=== PATIENT | female | born 1950 | race Caucasian/White ===

== ENCOUNTER 2021-08-03 14:35 | Outpatient (CLI) | payer MEDICARE, SELFPAY ==
[2021-08-03 15:44] LABS: EXAGEN MAILED SPECIMEN
[2021-08-03 17:54] LABS: Absolute Lymphocyte Count 1.21 X10^3/uL (0.83-4.51); Absolute Neutrophil Count 5.4 X10^3/uL (2.0-7.7); Basophil# 0.04 X10^3/uL; Basophil% 0.5 % (0-1); Color, Urine Yellow (Yellow); Eosinophil# 0.17 X10^3/uL; Eosinophils% 2.3 % (0-5); Glucose, Dipstick Normal (Normal); Hematocrit 38.3 % (37-47); Hemoglobin 12.5 g/dL (12.0-15.0); Ketone-Dipstick Negative (Negative); Leukocyte Esterase-Dipstick Negative /ul (Negative); Lymphocyte # 1.21 X10^3/ul (0.83-4.51); Lymphocyte % 16.3 % (19-41); Mean Corp Hgb Conc 32.6 g/dL (32-36); Mean Corpuscular Hgb 29.7 pg (27.0-32.0); Mean Platelet Vol. 10.4 fl (6.2-12.0); Monocyte# 0.62 X10^3/uL; Monocyte% 8.3 % (0-10); NRBC Flagged by Analyzer 0 % (0-5); Neutrophil # 5.38 X10^3/uL (2.7-7.7); Neutrophil % 72.3 % (47-70); Nitrite-Dipstick Negative (Negative); Occult Blood-Urine Negative /ul (Negative); Platelet Count 274 K/mm3 (150-450); Protein-Dipstick Negative (Negative); RBC Distribution Width CV 13.5 % (11.6-14.6); RBC Distribution Width SD 44.8 fl (35.1-43.9); Red Blood Count 4.21 M/mm3 (4.2-5.4); Urine Bilirubin Dipstick Negative (Negative); Urine Clarity Clear (Clear); Urine Urobilinogen Normal (Normal); White Blood Count 7.4 K/mm3 (4.4-11.0)
[2021-08-03 18:10] LABS: ALB/GLOB Ratio 0.8 RATIO (0.9-2.4); AST(SGOT) 36 U/L (15-37); Alanine Aminotransfer ALT/SGPT 46 U/L (13-56); Albumin, Serum 3.6 g/dL (3.2-5.0); Alkaline Phosphatase 118 U/L (45-117); Anion Gap 4 (5-15); BUN 15 mg/dL (7-18); BUN/Creat Ratio 18.6 RATIO (10-20); Calcium,Total 9.1 mg/dL (8.5-10.1); Chloride 104 mmol/L (98-107); Creatinine, Serum 0.81 mg/dL (0.55-1.02); EST Glomerular Filtration Rate 74 mL/min (>60); Est Glom Filt Rate - Afr Amer 90 mL/min (>60); Globulin 4.5 g/dL (2.2-4.2); Glucose 93 mg/dL (74-106); Potassium 4.2 mmol/L (3.5-5.1); Protein, Total 8.1 g/dL (6.4-8.2); Sodium Level 136 mmol/L (136-145)
[2021-08-03 18:16] LABS: Protein, Urine (Random) 10.8 mg/dL (<11.9); Protein:Creat Ratio 347 mg/g CRE (0-200)
[2021-08-03 18:40] LABS: International Normalized Ratio 1.2; Prothrombin Time (Protime)PT. 14.2 SECONDS (11.7-14.9)
[2021-08-04 09:24] LABS: Hepatitis B Surface Antibody Non-Reactive; Hepatitis B Surface Antigen Non-Reactive (Nonreactive); Hepatitis C Antibody Non-Reactive (Nonreactive)
[2021-08-05 12:41] LABS: Thrombin Time 17.4 sec (0.0-23.0)
[2021-08-05 13:08] LABS: Dilute Prothrombin Time (dPT) 34.6 sec (0.0-47.6); Hexagonal Phase Phospholipid 1 sec (0-11); PTT-LA 41.8 sec (0.0-51.9); Thrombin Time 17.2 sec (0.0-23.0); dPT Confirm Ratio 0.94 Ratio (0.00-1.34)
[2021-08-05 16:07] LABS: Interpretation Comment: (.)
== END 2021-08-03 23:59 | disposition home or self-care (01) ==
LOC: MTLAB 14:41
PROVIDERS: PCP Nurse Practitioner Family; Referring Provider Internal Medicine Rheumatology; Visit Provider Internal Medicine Rheumatology
DX: M06.4 Inflammatory polyarthropathy (principal); R76.8 Other specified abnormal immunological findings in serum; M79.7 Fibromyalgia; M19.041 Primary osteoarthritis, right hand; M47.897 Other spondylosis, lumbosacral region; M47.892 Other spondylosis, cervical region; H35.30 Unspecified macular degeneration; G25.81 Restless legs syndrome; F32.A Depression, unspecified; I35.0 Nonrheumatic aortic (valve) stenosis; Z85.42 Personal history of malignant neoplasm of other parts of uterus; I89.0 Lymphedema, not elsewhere classified
CPT/HCPCS: 36415; 80053; 81002; 82570; 84156; 85025; 85598; 85610; 85670; 85730; 86706; 86803; 87340

== ENCOUNTER → 2022-03-31 | Outpatient (CLI) | payer MEDICARE, SELFPAY ==
[2022-04-03 12:07] LABS: Red Blood Cell Count Test/G6PD 3.83 x10E6/uL (3.77-5.28)
[2022-04-03 17:47] LABS: G6PD Quant Test 290 (127-427)
== END | disposition home or self-care (01) ==
LOC: MTLAB 11:57
PROVIDERS: PCP Nurse Practitioner Family; Referring Provider Internal Medicine Rheumatology; Visit Provider Internal Medicine Rheumatology
DX: M06.4 Inflammatory polyarthropathy (principal); R76.8 Other specified abnormal immunological findings in serum; M79.7 Fibromyalgia; M19.041 Primary osteoarthritis, right hand; M47.897 Other spondylosis, lumbosacral region; M47.892 Other spondylosis, cervical region; H35.30 Unspecified macular degeneration; G25.81 Restless legs syndrome; F32.A Depression, unspecified; I35.0 Nonrheumatic aortic (valve) stenosis; I89.0 Lymphedema, not elsewhere classified; Z85.42 Personal history of malignant neoplasm of other parts of uterus; Z79.899 Other long term (current) drug therapy
CPT/HCPCS: 36415; 82955

== ENCOUNTER → 2024-11-14 | Outpatient (CLI) | payer MEDICARE, SELFPAY ==
[2024-11-14 09:36] LABS: Absolute Lymphocyte Count 1.09 X10^3/uL (0.83-4.51); Absolute Neutrophil Count 3.7 X10^3/uL (2.0-7.7); Basophil# 0.05 X10^3/uL; Basophil% 0.9 % (0-1); Eosinophil# 0.27 X10^3/uL; Eosinophils% 4.7 % (0-5); Hematocrit 37.2 % (37-47); Hemoglobin 12.1 g/dL (12.0-15.0); Lymphocyte # 1.09 X10^3/ul (0.83-4.51); Mean Corp Hgb Conc 32.5 g/dL (32-36); Mean Corpuscular Hgb 29.1 pg (27.0-32.0); Mean Corpuscular Volume 89.4 fL (81-99); Monocyte# 0.55 X10^3/uL; Monocyte% 9.6 % (0-10); NRBC Flagged by Analyzer 0 % (0-5); Neutrophil # 3.74 X10^3/uL (2.7-7.7); Neutrophil % 65.3 % (47-70); Platelet Count 282 K/mm3 (150-450); RBC Distribution Width CV 13.8 % (11.6-14.6); RBC Distribution Width SD 44.7 fl (35.1-43.9); Red Blood Count 4.16 M/mm3 (4.2-5.4); White Blood Count 5.7 K/mm3 (4.4-11.0)
[2024-11-14 10:40] LABS: Anion Gap 8 (5-15); BUN 9 mg/dL (4-19); BUN/Creat Ratio 11.3 RATIO (10-20); Calcium,Total 9.2 mg/dL (7.6-11.0); Carbon Dioxide 26.2 mmol/L (21.0-32.0); Chloride 107 mmol/L (98-108); Creatinine, Serum 0.76 mg/dL (0.70-1.20); EST Glomerular Filtration Rate 81 (>60); Glucose 94 mg/dL (70-99); Potassium 4.7 mmol/L (3.3-5.1); Sodium Level 141 mmol/L (133-145)
== END | disposition home or self-care (01) ==
PROVIDERS: PCP Student in an Organized Health Care Education/Training Program; Referring Provider Internal Medicine Cardiovascular Disease; Visit Provider Internal Medicine Cardiovascular Disease
DX: I35.0 Nonrheumatic aortic (valve) stenosis (principal)
CPT/HCPCS: 36415; 80048; 85025

== ENCOUNTER 2024-11-26 06:30 | Day surgery (SDC) | payer MEDICARE, SELFPAY ==
[2024-11-25 08:18] VITALS: BMI 28.0
--- NOTE | 2024-12-29 09:46 | CL.D_ITS ---
Patient Name: STEPHANIE WHALEN Study Date: 11/26/2024 Performing: Riki Wilde MD Ht: 63 inches 160.02 cm : 1950 Wt: 158.2 lbs 71.67 kg Age: 74 Gender: female BSA: 1.75 PROCEDURE(S) PERFORMED DC01-([id number])LHC/COR/LV CLINICAL PROFILE AND INDICATIONS Indications: Valvular Disease, Cardiomyopathy Heart Failure: None Stress/Imaging Stress/Image Study Performed: No CAD Presentations: No Sxs, no angina. 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 RECOMMENDATIONS Consider cardiac MRI, repeat echocardiogram and then further therapy as needed. DESCRIPTION OF PROCEDURE The patient arrived to the procedure lab. The risks and benefits of the procedure as well as a full description of our services here and current unavailability of surgical backup were fully explained to the patient and/or their significant other prior to the catheterization. The Timeout was completed, verifying the correct patient and procedure. The patient's procedural site was prepped and draped in the usual fashion. Local anesthetic was given subcutaneously to right radial region with Lidocaine 2%. Using a modified Seldinger technique, arterial access was obtained via the right radial artery, a 6Fr sheath was inserted. Left Coronary Artery selective angiography was performed in multiple views using a 5 Fr. 4.0 [place] catheter. Right Coronary Artery selective angiography was then performed in multiple views using a 5 Fr. 4.0 [place] catheter. Left Ventriculography was performed in GIL projection using a 5 Fr. [place] catheter. LV to AO pullback pressures were then recorded.The arterial sheath was pulled and a TR Band was applied for hemostasis CORONARY ANGIOGRAPHY DOMINANCE: Right Dominant LEFT HEART ASSESSMENT Left Ventricular Ejection Fraction: by LV Gram 80% % Normal LV wall motion Normal Left Ventricular systolic function Cardiomyopathy: Hypertrophic LEFT MAIN: Angiographically normal LEFT ANTERIOR DESCENDING ARTERY: Mild luminal irregularities less than 30% CIRCUMFLEX ARTERY: Mild luminal irregularities RIGHT CORONARY ARTERY: Large dominant vessel with mid to distal 50 to 60% stenotic lesion in a tortuous area in the posterior descending artery with a 50% stenosis. VALVE FINDINGS: Aortic Valve Calcification - mild Aortic Valve Stenosis - mild COMPLICATIONS No Complications PROCEDURE MEDICATIONS Versed 1 mg IV Fentanyl 50 mcg IV Oxygen: 2 L/min via nasal cannula Aspirin (325mg) 1 Tabs PO @ 11/26/2024 07:17:42 Heparin given IA 11/26/2024 07:55:55 Verapamil 2.5mg, 2000 units of Heparin given IA 11/26/2024 07:55:55 SUMMARY OF HEMODYNAMIC DATA Time AIR REST ECG 07:18:11 AO 135/63 (93) SA 07:58:30 LV 139/11, 25 08:06:54 LV 143/8, 23 08:07:03 LV 134/16, 42 08:07:55 LV 140/16, 49 08:07:59 LVp 195/13, 26 08:08:20 AOp 179/87 (128) 08:08:27 AIR REST 09:55:21 Signed By Riki Wilde MD On 12/01/2024 14:51:03 Riki Wilde MD
== END 2024-11-26 09:45 | disposition home or self-care (01) ==
PROVIDERS: PCP Student in an Organized Health Care Education/Training Program; Referring Provider Internal Medicine Cardiovascular Disease; Visit Provider Internal Medicine Cardiovascular Disease
DX: I35.0 Nonrheumatic aortic (valve) stenosis (principal); I42.2 Other hypertrophic cardiomyopathy; I25.10 Atherosclerotic heart disease of native coronary artery without angina pectoris; I10 Essential (primary) hypertension; Z79.899 Other long term (current) drug therapy
CPT/HCPCS: 93458; 99152; 99153; Q9967; C1769; C1894

== ENCOUNTER → 2024-12-18 | Outpatient (CLI) | payer MEDICARE, SELFPAY ==
--- NOTE | 2024-12-18 08:36 | ECHOCS_ITS ---
Reason For Study : Murmur Procedure This was a 2D Doppler, Color Flow transthoracic echocardiogram. Contrast injection was performed. Exam performed in department. Left Ventricle Normal LV size. Left ventricular systolic function is normal. The left ventricular ejection fraction is 60 %. Stage 1 diastolic dysfunction. No regional wall motion abnormalities noted. Right Ventricle Normal RV size. Normal systolic function. Atria Normal left atrium. Normal right atrium. Bubble contrast study is negative for PFO/ASD. Mitral Valve There is mild mitral annular calcification. Tricuspid Valve Normal tricuspid valve. Mild (1+) tricuspid valve insufficiency. Pulmonary artery systolic pressure is 26 mmHg. Aortic Valve Trisinus/trileaflet aortic valve. Mild focal aortic valve calcification. Peak aortic valve gradient 59 mmHg. Mean aortic valve gradient 37 mmHg. Moderate to severe aortic stenosis. Pulmonic Valve Normal pulmonic valve. Great Vessels Normal aortic root. The pulmonary artery is normal size. Inferior vena cava collapse with respiration. Pericardium/Pleural No pericardial effusion. Medication 22 gauge I.V. with prn adaptor inserted into left arm. Diluted definity 1.5ml given slow IV push to enhance endocardial definition. Performed a rapid injection of agitated mix of 9 cc saline and 1cc air to assess for atrial septal defect. MMode/2D Measurements & Calculations LVIDd: 4.5 cm IVSd: 0.97 cm LVOT diam: 1.9 cm LVIDs: 3.4 cm LVPWd: 0.93 cm RVDd: 3.3 cm FS: 23.8 % LVOT area: 2.8 cm2 Ao root diam: 3.0 cm LAV(MOD-bp): 45.9 ml LVAd ap4: 28.7 cm2 LAV(MOD-bp) Indexed: 26.2 ml/m2 LVLd ap4: 8.0 cm LAV(MOD-sp2): 53.2 ml EDV(MOD-sp4): 84.0 ml LAV(MOD-sp4): 37.1 ml EDV(sp4-el): 87.1 ml LVAs ap4: 18.5 cm2 LVLs ap4: 6.7 cm ESV(MOD-sp4): 40.9 ml ESV(sp4-el): 43.3 ml EF(MOD-sp4): 51.3 % EF(sp4-el): 50.3 % SV(MOD-sp4): 43.1 ml SV(sp4-el): 43.8 ml Ao sinus diam: 2.9 cm SI(MOD-sp4): 24.6 ml/m2 Ao ST Junction: 2.4 cm Aortic Valve Planimetry: 0.68 cm2 LA A4 area: 14.8 cm2 LA dimension(2D): 4.3 cm TAPSE: 1.6 cm RA A4 area: 11.7 cm2 Time Measurements MV dec time: 0.29 sec Doppler Measurements & Calculations MV E max marquis: 52.6 cm/sec Lat Peak E' Marquis: 6.6 cm/sec Med Peak E' Marquis: 7.2 cm/sec MV A max marquis: 77.8 cm/sec E/E' lat: 8.0 E/E' med: 7.3 MV E/A: 0.68 MV V2 max: 102.6 cm/sec MV P1/2t max marquis: 82.2 cm/sec Ao V2 max: 383.8 cm/sec MV max P.2 mmHg MV P1/2t: 87.2 msec Ao max P.0 mmHg MV V2 mean: 48.3 cm/sec MV dec slope: 275.9 cm/sec2 Ao V2 mean: 288.2 cm/sec MV mean P.2 mmHg Ao mean P.8 mmHg MV V2 VTI: 26.8 cm MVA(P1/2t): 2.5 cm2 Ao V2 VTI: 85.7 cm MVA(VTI): 2.6 cm2 AV (velocity ratio): 0.29 TAYLOR(I,D): 0.82 cm2 TAYLOR(V,D): 0.72 cm2 LV V1 max: 97.8 cm/sec SV(LVOT): 70.3 ml PA V2 max: 119.4 cm/sec LV V1 max P.8 mmHg LV V1 mean P.2 mmHg LV V1 mean: 70.5 cm/sec LV V1 VTI: 24.8 cm TR max marquis: 243.2 cm/sec TR max P.7 mmHg ECHO/Echo Complete W/ Contrast Interpretation Summary Bubble contrast study is negative for PFO/ASD. Normal LV size. Left ventricular systolic function is normal. The left ventricular ejection fraction is 60 %. Stage 1 diastolic dysfunction. Mean aortic valve gradient 37 mmHg. Moderate to severe aortic stenosis. Contrast injection was performed. Ordering Physician: Riki Wilde Referring Physician: Riki Wilde Performed By: Taj Winter RCS
== END | disposition home or self-care (01) ==
PROVIDERS: PCP Student in an Organized Health Care Education/Training Program; Referring Provider Internal Medicine Cardiovascular Disease; Visit Provider Internal Medicine Cardiovascular Disease
DX: I35.0 Nonrheumatic aortic (valve) stenosis (principal)
CPT/HCPCS: 93306; Q9957; A4216; C8929

== ENCOUNTER → 2025-03-27 | Outpatient (CLI) | payer MEDICARE, SELFPAY ==
[2025-03-27 10:32] LABS: AST(SGOT) 35 U/L (<=31); Alanine Aminotransfer ALT/SGPT 24 U/L (<=34); Albumin, Serum 3.6 g/dL (3.4-4.8); Alkaline Phosphatase 156 U/L (35-104); Bilirubin, Direct 0.19 mg/dL (0.00-0.30); Cholesterol 139 mg/dL (<=200); Globulin 4.8 g/dL (2.2-4.2); Low Density Lipoprotein Calc. 70 mg/dL; Triglycerides 190 mg/dL; Very Low Density Lipoprotein 38 mg/dL (5-40); cholesterol:hdl ratio screen 3.72
== END | disposition home or self-care (01) ==
LOC: LAB 09:19
PROVIDERS: PCP Student in an Organized Health Care Education/Training Program; Referring Provider Student in an Organized Health Care Education/Training Program; Visit Provider Student in an Organized Health Care Education/Training Program
DX: E78.5 Hyperlipidemia, unspecified (principal)
CPT/HCPCS: 36415; 80061; 80076